=== PATIENT | male | born 2005 ===

== ENCOUNTER 2024-06-09 13:28 | Inpatient (IN) | payer OTHER, SELFPAY ==
[2024-06-09 13:41] VITALS: BP 140/90; PULSE 74; O2SAT 98
[2024-06-09 13:56] VITALS: BP 125/63; PULSE 75; RESP 17; TEMP 36.9; O2SAT 98; BMI 20.7
--- NOTE | 2024-06-09 14:43 | ED.PSYCH ---
HPI - Psych General Chief Complaint: Psychiatric Symptoms Stated Complaint: CRISIS EVAL PER EMS Time Seen by Provider: 06/09/24 13:32 Source: patient and EMS Mode of arrival: EMS Limitations: no limitations History of Present Illness ED Provider: JOSY HPI Narrative: 19 yo male with reported mood and personality disorder who reports increased depression and SI with plan to jump from a really high building so he can look up and watch the gee when he falls. He reports no medications and no recent drug use. He is having social issues finding work. He has been a bed search and S12 from community. He has no medical complaints MD complaint: suicidal ideation and feels depressed Onset (ago): week(s) Duration: getting worse History of same: Yes Relieving factors: none Exacerbating factors: other Context: significant life stressor Associated psychiatric symptoms: depression and suicidal ideation Associated symptoms: denies other symptoms Treatments prior to arrival: placed on mental health hold If self harm: admits thoughts of self harm and has plan Related Data Home Medications ?Medication ?Instructions ?Recorded ?Confirmed No Known Home Meds 06/10/24 06/10/24 Allergies Allergy/AdvReac Type Severity Reaction Status Date / Time No Known Allergies Allergy Verified 06/09/24 13:59 Review of Systems Review of Systems: Constitutional : No Fever, No Chills ENT/Mouth : No Ear Pain, No Nasal Congestion, No sore throat Eyes: No Eye Pain, No Swelling, No Redness Cardiovascular : No Chest Pain, No SOB Respiratory : No Cough, No Sputum, No Dyspnea Gastrointestinal : No Nausea, No Vomiting, No Diarrhea, No Hematochezia, No Melena Genitourinary : No Dysuria, No Urinary Frequency, No Hematuria Musculoskeletal : No Myalgias Skin : No Skin Lesions, No rash Neuro : No Weakness, No Numbness, No Paresthesias, No Dizziness, No Headache Psych : positive Anxiety, positive Depression, positive SI no HI All other systems reviewed and are negative [facility] Past Medical History Attestation statement: The following information was validated with the patient. Source: old records reviewed Medical History (Updated 06/09/24 @ 15:30 by Janki Queen DO) Personality disorder Social History Social History (Updated 06/09/24 @ 14:54 by Janki Queen DO) Patient Tobacco Use Status: Never used Tobacco Substance Use Type: Marijuana Advance Directives: No Advance Directives Information Provided: No Do you have a plan to hurt others: No Plan Physical Exam Vital Signs: Vital Signs: Last Vital Signs Temp 97.9 F 06/10/24 02:10 Pulse 59 06/10/24 02:10 Resp 16 06/10/24 02:10 BP 137/67 06/10/24 02:10 Pulse Ox 99 06/10/24 02:10 O2 Del Method Room Air 06/10/24 02:10 BMI result Body Mass Index 20.7 Appearance: Alert. Oriented X3. No acute distress. Eyes: Pupils equal, round and reactive to light. ENT: Pharynx normal. Neck: Normal inspection. Neck supple. CVS: Normal heart rate and rhythm. Pulses normal. Respiratory: No respiratory distress. Breath sounds normal. Abdomen: Soft and nontender. Skin: Skin warm and dry. Normal skin color. Normal skin turgor. Extremities: No lower extremity edema. No calf ttp Neuro: Oriented X 3. No motor deficit. No sensory deficit. CN2-12 intact Course Course Course Narrative: Time: 08:37 Date: 06/10/24 Provider: Janki Queen, Patient in physician observation for psychiatric evaluation.? No acute events reported overnight. No current complaints. VS stable.? Patient is in bed search status S12 Reevaluation(s) Reevaluation #1: Time: 13:28 Date: 06/10/24 Provider: Janki Queen DO Physician observation ended at 128pm. Patient to be admitted as inpatient to psychiatry. Medical Decision Making Medical Decision Making [facility] Narrative: 19 yo male with mood disorder and reported personality disorder who states he has SI with a very specific plan. He denies withdrawal concerns or medical issues. At this time labs ordered, S12 in place. Planned admit Differential Diagnosis Differential Diagnoses: The differential diagnosis associated with the presentation includes SI, depression Admission/Observation Consideration of admission/observation: Escalation of care including admission/observation considered physician observation started at 315pm pending placement for inpatient psychiatric placement Consult Healthcare Provider Management of the patient was discussed with: Behavioral Health Provider (S12 - inpatient bed search) Lab Data [facility] Lab Attestation statement: I reviewed the patient's lab results. 06/09/24 15:59 06/09/24 15:59 Labs: Lab Results 06/09/24 06/09/24 Range/Units 15:43 15:59 WBC 6.2 (4.8-10.8) X10*3/uL RBC 4.85 (4.60-5.80) X10*6/uL Hgb 14.7 (14.0-18.0) g/dl Hct 42.4 (42.0-52.0) % MCV 87.4 (80.0-98.0) fL MCH 30.3 (27.0-33.0) pg MCHC 34.7 (31.0-36.0) g/dl RDW 13.4 (11.0-16.0) % Plt Count 246 (160-400) X10*3/uL MPV 10.3 (9.4-12.4) fL Immature Gran % (Auto) 0.3 (0.0-0.4) % Neut % (Auto) 66.9 (45-73) % Lymph % (Auto) 26.1 (20-40) % Mason % (Auto) 5.7 (2-11) % Eos % (Auto) 0.2 (0-4) % Baso % (Auto) 0.8 (0-2) % Lymph # (Auto) 1.6 (1.2-4.9) X10*3/uL Mason # (Auto) 0.4 (0.1-1.2) X10*3/uL Eos # (Auto) 0.0 (0.0-0.4) X10*3/uL Baso # (Auto) 0.1 (0.0-0.2) X10*3/uL Abs Immat Gran (auto) 0.02 (0.00-0.03) X10*3/uL Absolute Neuts (auto) 4.1 (2.0-8.3) x10*3/uL Absolute Nucleated RBC 0.000 (0.0-0.012) X10*3/uL Nucleated RBC % (auto) 0.0 (0.0-0.2) /100WBC Sodium 142 (135-145) mmol/L Potassium 4.0 (3.3-5.1) mmol/L Chloride 109 H (96-108) mmol/L Carbon Dioxide 25 (22-29) mmol/L Anion Gap 12 (12-20) BUN 9 (9-16) mg/dL Creatinine 0.86 (0.5-1.4) mg/dL Estim Creat Clear Calc 122.0 Estimated GFR > 60 Random Glucose 94 (60-115) mg/dL Calcium 9.4 (8.4-10.2) mg/dL Magnesium 2.2 (1.6-2.6) mg/dL Total Bilirubin 2.2 H (0.0-1.0) mg/dL Direct Bilirubin 0.4 (0.0-0.5) mg/dL AST 21 (5-37) U/L ALT 17 (0-40) U/L Alkaline Phosphatase 58 (39-117) U/L Total Protein 7.2 (6.5-8.0) g/dL Albumin 4.6 (3.5-5.0) g/dL Urine Color Dark Yellow Urine Appearance Turbid Urine pH 5.5 (5.0-9.0) Ur Specific [place] >= 1.030 H (1.005-1.025) Urine Protein 30 (1+) H (Neg-Trace) mg/dL Urine Glucose (UA) Negative (Negative) mg/dL Urine Ketones Trace (Negative) mg/dL Urine Blood Negative (Negative) Urine Nitrite Negative (Negative) Ur Leukocyte Esterase Small (1+) H (Negative) Urine RBC 0-2 (0-2) /HPF Urine WBC 11-20 H (0-5) /HPF Ur Squamous Epith Cells 0-2 (0-2) /HPF Urine Bacteria None Seen (None Seen) Hyaline Casts 3-5 (0-2) /LPF Urine Opiates Screen Not Detected (Not Detect) Ur Buprenorphine Scrn Not Detected (Not Detect) ng/mL Ur Oxycodone Screen Not Detected (Not Detect) ng/mL Urine Methadone Screen Not Detected (Not Detect) ng/mL Urine Fentanyl Screen Not Detected (Not Detect) Ur Barbiturates Screen Not Detected (Not Detect) Ur Phencyclidine Scrn Not Detected (Not Detect) Ur Amphetamines Screen Not Detected (Not Detect) U Benzodiazepines Scrn Not Detected (Not Detect) Urine Cocaine Screen Not Detected (Not Detect) U Marijuana (THC) Screen POSITIVE H (Not Detect) Ethyl Alcohol < 10 mg/dL Independent Historian Clinical information obtained from an independent historian. History obtained from or confirmed by: EMS Discharge Plan Discharge Clinical Impression: Suicidal ideation Patient Disposition: Admitted As In[facility] Last Done: 06/09/24 14:44
--- NOTE | 2024-06-09 15:11 | PC.NURSE ---
Patient moved from [facility] to Pod 2, escorted by security.
[2024-06-09 16:03] LABS: Amphetamine Screen Urine Not Detected (Not Detect); Barbiturates, Urine Not Detected (Not Detect); Benzodiazepines Screen Urine Not Detected (Not Detect); Buprenorphine Scr Not Detected (Not Detect); Cannabinoid Screen Urine POSITIVE (Not Detect); Cocaine Screen Urine Not Detected (Not Detect); Fentanyl, urine Not Detected (Not Detect); Methadone Screen, Urine Not Detected (Not Detect); Opiate Screen Urine Not Detected (Not Detect); Oxycodone Screen Urine Not Detected (Not Detect); Phencyclidine Screen Urine Not Detected (Not Detect)
[2024-06-09 16:07] LABS: MANUAL DIFF FLAG NO
[2024-06-09 16:09] LABS: Basophils Absolute Auto 0.1 X10*3/uL (0.0-0.2); Basophils Percent Auto 0.8 % (0-2); Eosinophils Percent Auto 0.2 % (0-4); Hematocrit 42.4 % (42.0-52.0); Hemoglobin 14.7 g/dl (14.0-18.0); Imm Gran Abs Auto 0.02 X10*3/uL (0.00-0.03); Imm Gran Pct Auto 0.3 % (0.0-0.4); Lymphocytes Absolute Auto 1.6 X10*3/uL (1.2-4.9); Lymphocytes Percent Auto 26.1 % (20-40); Mean Corpuscular HGB Conc 34.7 g/dl (31.0-36.0); Mean Corpuscular Hemoglobin 30.3 pg (27.0-33.0); Mean Corpuscular Volume 87.4 fL (80.0-98.0); Mean Platelet Volume 10.3 fL (9.4-12.4); Monocytes Absolute Auto 0.4 X10*3/uL (0.1-1.2); Monocytes Percent Auto 5.7 % (2-11); Neutrophils Absolute Auto 4.1 x10*3/uL (2.0-8.3); Neutrophils Percent Auto 66.9 % (45-73); Platelet Count 246 X10*3/uL (160-400); Red Blood Count 4.85 X10*6/uL (4.60-5.80); Red Cell Distribution Width 13.4 % (11.0-16.0); White Blood Count 6.2 X10*3/uL (4.8-10.8)
[2024-06-09 16:47] LABS: Alanine Aminotransferase 17 U/L (0-40); Albumin Level 4.6 g/dL (3.5-5.0); Anion Gap 12 (12-20); Aspartate Amino Transferase 21 U/L (5-37); Bilirubin Direct 0.4 mg/dL (0.0-0.5); Bilirubin Total 2.2 mg/dL (0.0-1.0); Blood Urea Nitrogen 9 mg/dL (9-16); Calcium 9.4 mg/dL (8.4-10.2); Carbon Dioxide 25 mmol/L (22-29); Chloride 109 mmol/L (96-108); Estimated Glomerular Filt Rate > 60; Ethanol < 10 mg/dL; Glucose Random 94 mg/dL (60-115); Magnesium 2.2 mg/dL (1.6-2.6); Sodium 142 mmol/L (135-145); Total Protein 7.2 g/dL (6.5-8.0)
[2024-06-09 17:02] LABS: Alkaline Phosphatase 58 U/L (39-117)
--- OUTSIDE RECORDS SUMMARY | 2024-06-09 17:14 | XMS_ITS | Clinical Summary ---
Author Organization [facility] Address [address] [place] [id number] Phone Care Team Providers Care Assembler Seat Name Role Phone Otf Pereira MD Primary Care Provider [phone] Allergies No known active allergies Medications albuterol HFA 108 (90 Base) MCG/ACT inhaler Albuterol HFA; 0; 11/18/2012; Active 3 Active polyethylene glycol (MIRALAX) powderIndications :Slow transit constipation Take 17 g by mouth daily. Stir and dissolve powder into 4 to 8 ounces of beverage and then drink. 500 g 1 8 Active Active Problems Problem Noted Date Diagnosed Date Slow transit constipation 12/01/2017 Assessment & Plan (12/01/2017 12:58 PM EDT): Discussed use of exlax again with use of miralax regularly after that for at least two months. Dysthymia 07/16/2017 Overview (11/30/2017): Depression (311) Onset: 07/16/2017 Added by: Stefanie Cristobal Assessment & Plan (03/27/2018 7:02 AM EST): Doing much better since starting Prozac. On 10 mg and feels that this dose is appropriate at this time. Attention deficit disorder with hyperactivity Overview (11/30/2017): ADHD (314.01) Onset: 02/14/2016 Added by: Linette Romero Extrinsic asthma 02/14/2016 Overview (11/30/2017): Asthma (493.00) Onset: 02/14/2016 Added by: Linette Romero Immunizations Immunization Administration Dates Next Due DTaP 5 10/16/2008, 5,2003,05/28,2003 H1N1 Inj 06/15/2009 HPV Vaccine 9 Valent 09/28/2014 HPV, Quadrivalent 05/27/2014,02/04/2014 Hep A, ped/adol 02/17/2019,01/02/2018 Hep B, ped/adol 05/02/2004,2003,2003 Hib (PRP-T) 08/03/2004, 4,2003,04/01 IPV 10/16/2008, 5,2003,04/01 Influenza, injectable, quadr ivalent, preservative free 02/17/2019,01/02/2018,02/14/2016,02/10,02/03/2013 Influenza, injectable, trivalent 02/04/2014,01/04,12/02/2009 Influenza, injectable, triva lent, preservative free 12/13/2011 MMR 10/16/2008,02/01/2004 Meningococcal Conj (Menactra) MCV4P 02/17/2019,1 04/07/2013 Pneumococcal Polysaccharide 05/02/2004,0 2003,2003,04/01 Tdap 02/04/2014 Varicella 10/16/2008,05/02/2004 Family History Medical History Relation Name Comments No Known Problems Father No Known Problems Mother gosia Relation Name Status Comments Father Alive Mother gosia Alive Social History Tobacco Use Types Packs/Day Years Used Date Smoking Tobacco: Never Smokeless Tobacco: Never Alcohol Use Standard Drinks/Week Comments No 0 (1 standard drink = 0.6 oz pur e alcohol) Hunger/Food Answer Date Recorded In the last 12 months, did y ou or your family ever eat less than you felt you should because there wasn't enough money for food? No 02/17/2019 Stable Housing Answer Date Recorded Are you worried that in the next 2 months you may not have stable housing? No 02/17/2019 Transportation Concerns Answer Date Rec orded In the last 12 months, have you or your family ever had to go without healthcare because you didn't have a way to get there? No 02/17/2019 Hazards in Home Answer Date Recorded Think about the place you li ve. Do you have problems with any of the following? Pests (mice or roaches), mold, no/not working smoke detectors, water leaks, no window guards. No 2018 Financing Utilities Answer Date Recorde d In the last 12 months, has t he electric, gas, oil, or water company threatened to shut off your services in your home? No 02/17/2019 Safety at Home Answer Date Recorded Are you or your family worried about feeling saf e in your home? No 02/17/2019 Outside Support Answer Date Recorded Do you feel that you need mo re support from other people or programs to help you care for yourself or your family? No 02/17/2019 Understanding Health Concerns Answer Da te Recorded Do you need help understandi ng your or your child's healthcare needs (diagnosis, medications, plan, etc.)? No 02/17/2019 Financing Health Concerns Answer Date R ecorded In the last 12 months, was t here a time when your child needed to see a doctor or get medications or supplies but could not because of cost? No 02/17/2019 Missing School or Work Answer Date Cooper rded Did you or your child miss s chool or work because of a health problem that could have been avoided? No 02/17/2019 Sex and Gender Information Value Date Recorded Sex Assigned at Not on file Legal Sex Male 6:41 PM EDT Gender Identity Not on file Sexual Orientation Not on file Last Filed Vital Signs Vital Sign Reading Time Taken Comments Blood Pressure 122/78 02/17/2019 1:36 PM EST Pulse 88 02/17/2019 1:36 PM EST Temperature 37.2 ??C (99 ??F) 02/17/2019 1:36 PM EST Respiratory Rate - - Oxygen Saturation - - Inhaled Oxygen Concentration - - Weight 70.1 kg (154 lb 9 oz) 02/17/2019 1:36 PM EST Height 172.7 cm (5' 8 ) 02/17/2019 1:36 PM EST Body Mass Index 23.5 02/17/2019 1:36 PM EST Plan of Treatment Health Maintenance Due Date Last Done Comments Men B Vaccine (1 of 2 - Standard) 2019 Influenza Vaccines (#1) 2023 02/18/20 19, 01/02/2018, 02/14/2016, Additional history exists COVID-19 Vaccine ( season) 2023 DTaP,Tdap,and Td Vaccines (7 - Td or Tdap) 02/05/2024 02/04/2014, 10/16/2008, 08/03/2004, Additional history exists Hepatitis B Vaccines Completed 05/02/2004, 2003, 2003 Pneumococcal Vaccine Aged Out 05/02/2004, 2003, 2003, Additional history exists No longer eligible based on patient's age to complete this topic HIB Vaccines Completed 08/03/2004, 07/04, 2003, Additional history exists IPV Vaccines Completed 10/16/2008, 03/2004, 2003, Additional history exists MMR Vaccines Completed 10/16/2008, 02/01/2004 Varicella Vaccines Completed 10/16/2008, 05/02/2004 HPV Vaccines Completed 09/28/2014, 05/04, 02/04/2014 Hepatitis A Vaccines Completed 02/17/2019, 01/03/20 18 Meningococcal Vaccine Completed 02/17/2019, 014 Care Teams Assembler Seat Relationship Specialty Start Date End Date Otf Pereira MD [facility] [place] [address] PCP - General Pediatrics 09/23/20
--- OUTSIDE RECORDS SUMMARY | 2024-06-09 17:14 | XMS_ITS | Encounter Summary ---
Author Organization [facility] Address [address] [place] [address] Phone Care Team Providers Care Dice Person Name Role Phone Otf Pereira MD Primary Care Provider [phone] Encounter Details Date Type Department Care Team (Late st Contact Info) Description 04/21/2010 Conversion Encounter [address] [place] [address] Social History Tobacco Use Types Packs/Day Years Used Date Smoking Tobacco: Never Assessed Sex and Gender Information Value Date Recorded Sex Assigned at Not on file Legal Sex Male 6:41 PM EDT Gender Identity Not on file Sexual Orientation Not on file documented as of this encounter Plan of Treatment Not on file documented as of this encounter Visit Diagnoses Not on filedocumented in this encounter Care Teams Dice Person Relationship Specialty Start Date End Date Otf Pereira MD [address] [place] [address] [place] [address] PCP - General Pediatrics 09/23/20 documented as of this encounter
--- NOTE | 2024-06-09 19:32 | PC.NURSE ---
Patient has been resting comfortably throughout this shift. Denies pain. [facility] section 12 bedsearch.
--- NOTE | 2024-06-10 01:15 | PC.NURSE ---
Patient requested apple juice, provided and tolerated well. Patient is calm and cooperative. Currently resting in a bed, offers no complaints at present.
[2024-06-10 02:10] VITALS: BP 137/67; PULSE 59; RESP 16; TEMP 36.6; O2SAT 99
--- NOTE | 2024-06-10 06:58 | PC.NURSE ---
Assumed care of patient at 0645, patient appears to be sleeping no apparent distress noted, respirations even and unlabored. Continue plan of care for CARE team el
[2024-06-10 08:03] LABS: Appearance Urine Turbid; Color Urine Dark Yellow; Glucose Urine UA Negative (Negative); Leukocyte Esterase Urine Small (1+) (Negative); Nitrite Urine Negative (Negative); PH 5.5 (5.0-9.0); Specific Gravity - Urine >= 1.030 (1.005-1.025); UMIC TRIGGER UA YES; Urine Blood Negative (Negative); Urine Ketones Trace mg/dL (Negative); Urine Protein 30 (1+) mg/dL (Neg-Trace)
[2024-06-10 08:11] LABS: Bacteria Urine None Seen (None Seen); RBC Urine 0-2 /HPF (0-2); Squamous Epithelial Cell Urine 0-2 /HPF (0-2)
[2024-06-10 14:57] VITALS: BP 136/67; PULSE 71; RESP 15; TEMP 37.1; O2SAT 97; BMI 20.3
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
[2024-06-10 19:41] VITALS: BP 131/68; PULSE 79; TEMP 36.6; O2SAT 97
[2024-06-10] MEDS: hydrOXYzine HCL 25 MG TABLET PO (21:14)
[2024-06-10] MEDS: traZODone HCL 50 MG TABLET PO (21:14)
[2024-06-11 07:58] LABS: Estimated Average Glucose 105 mg/dL; Hemoglobin A1C 132.8605 umol/L; Hemoglobin A1c % 5.3 % (<6.0)
[2024-06-11 08:10] LABS: Cholesterol 129 mg/dL (<200); HDL Cholesterol 37 mg/dL (>40); LDL Cholesterol Calculated 77 mg/dL (<100); Magnesium 2.2 mg/dL (1.6-2.6); Triglycerides 76 mg/dL (<150)
[2024-06-11 08:25] LABS: Free T4 (Free Thyroxine) 1.05 ng/dL (0.71-1.85); Thyroid Stimulating Hormone 1.56 uIU/mL (0.32-4.0)
[2024-06-11 08:39] LABS: Folate 7.6 ng/mL (> or = 4.0); Vitamin B12 354 pg/mL (200-900)
[2024-06-11 08:55] VITALS: BP 95/55; PULSE 66; TEMP 36.3; O2SAT 100
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
[2024-06-11 19:26] VITALS: BP 119/59; PULSE 76; TEMP 37.2; O2SAT 98
[2024-06-11] MEDS: traZODone HCL 50 MG TABLET PO (21:28)
[2024-06-11] MEDS: hydrOXYzine HCL 25 MG TABLET PO (21:28)
[2024-06-12 07:00] VITALS: BMI 20.6
[2024-06-12 07:51] VITALS: BP 97/43; PULSE 56; TEMP 36.4; O2SAT 98
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
[2024-06-12] MEDS: risperiDONE 0.5 MG TABLET PO ×2 (12:55→20:40)
[2024-06-12] MEDS: hydrOXYzine HCL 25 MG TABLET PO (20:40)
[2024-06-12] MEDS: traZODone HCL 50 MG TABLET PO (20:40)
[2024-06-13 08:00] VITALS: BP 130/60; PULSE 80; RESP 16; TEMP 36.5; O2SAT 99
[2024-06-13] MEDS: risperiDONE 0.5 MG TABLET PO ×2 (08:48→21:16)
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
[2024-06-13] MEDS: hydrOXYzine HCL 25 MG TABLET PO (17:35)
[2024-06-13 20:00] VITALS: BP 128/88; PULSE 88; TEMP 37.1; O2SAT 98
[2024-06-13] MEDS: traZODone HCL 50 MG TABLET PO (21:16)
[2024-06-14 08:00] VITALS: BP 125/68; PULSE 71; RESP 16; TEMP 36.7; O2SAT 100
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
[2024-06-14] MEDS: risperiDONE 0.5 MG TABLET PO ×2 (08:52→22:29)
[2024-06-14 19:53] VITALS: BP 120/59; PULSE 97; RESP 16; TEMP 36.8; O2SAT 97
[2024-06-14] MEDS: traZODone HCL 50 MG TABLET PO (22:29)
--- NOTE | 2024-06-15 | ECG_ITS ---
Test Reason : check qtc co racing heart from medicine Blood Pressure : */* mmHG Vent. Rate : 84 BPM Atrial Rate : 84 BPM P-R Int : 138 ms QRS Dur : 76 ms QT Int : 340 ms P-R-T Axes : 84 69 49 degrees QTcB Int : 401 ms Sinus rhythm with marked sinus arrhythmia Otherwise normal ECG No previous ECGs available Referred By: Glendy Panda Electronically Signed By: ANKITA SAHNI MD
[2024-06-15 08:00] VITALS: BP 122/58; PULSE 84; RESP 16; TEMP 36.7; O2SAT 100
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
[2024-06-15] MEDS: risperiDONE 0.5 MG TABLET PO ×2 (08:59→20:42)
[2024-06-15 20:00] VITALS: BP 140/70; PULSE 98; RESP 16; TEMP 36.8; O2SAT 97
[2024-06-15] MEDS: traZODone HCL 50 MG TABLET PO (20:42)
[2024-06-16 08:00] VITALS: BP 144/67; PULSE 87; RESP 18; TEMP 36.6; O2SAT 98
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
== END 2024-06-16 11:32 | disposition home or self-care (01) | DRG 755 ==
LOC: HO.ED 19:40 → HO.PM5 06-10 13:25
PROVIDERS: Admitting Provider Clinical Nurse Specialist Psychiatric/Mental Health, Adult; Emergency Provider Emergency Medicine; Visit Provider Clinical Nurse Specialist Psychiatric/Mental Health, Adult
DX: F43.11 Post-traumatic stress disorder, acute (principal); R45.851 Suicidal ideations; F43.12 Post-traumatic stress disorder, chronic; F60.9 Personality disorder, unspecified; F90.9 Attention-deficit hyperactivity disorder, unspecified type; Z59.01 Sheltered homelessness; Z62.810 Personal history of physical and sexual abuse in childhood; Z79.899 Other long term (current) drug therapy
CPT/HCPCS: 36415; 80048; 80061; 80076; 80307; 81001; 81003; 82607; 82746; 83036; 83735; 84439; 84443; 85025; 93005; 99284

== ENCOUNTER 2024-06-10 13:20 | Outpatient (BNV) | payer OTHER, SELFPAY | END 2024-06-15 11:37 | PROVIDERS: Admitting Provider Clinical Nurse Specialist Psychiatric/Mental Health, Adult; Emergency Provider Emergency Medicine; Visit Provider Internal Medicine Cardiovascular Disease | DX: Z13.6 Encounter for screening for cardiovascular disorders (principal) | CPT/HCPCS: 93010 ==

== ENCOUNTER → 2024-06-10 13:20 | Outpatient (BNV) | payer OTHER, SELFPAY | PROVIDERS: Admitting Provider Clinical Nurse Specialist Psychiatric/Mental Health, Adult; Emergency Provider Emergency Medicine; Visit Provider Psychiatry & Neurology Psychiatry | DX: F60.9 Personality disorder, unspecified (principal); F43.11 Post-traumatic stress disorder, acute; F90.9 Attention-deficit hyperactivity disorder, unspecified type; Z59.00 Homelessness unspecified | CPT/HCPCS: 90792; 99231; 99232 ==

== ENCOUNTER 2025-02-21 02:12 | Emergency (ER) | payer SELFPAY ==
[2025-02-21 02:15] VITALS: BP 110/80; BP 111/52; PULSE 85; PULSE 99; RESP 18; TEMP 36.9; O2SAT 97; O2SAT 99; BMI 23.4
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
--- OUTSIDE RECORDS SUMMARY | 2025-02-21 02:49 | XMS_ITS | Encounter Summary ---
Author Organization [facility] Address [address] [place] [id number] Phone Care Team Providers Care Clinic Manager Name Role Phone Otf Pereira MD Primary Care Provider [phone] Encounter Details Date Type Department Care Team (Late st Contact Info) Description 04/21/2010 Conversion Encounter [address] [place] [address] Social History Tobacco Use Types Packs/Day Years [...] on filedocumented in this encounter Care Teams Clinic Manager Relationship Specialty Start Date End Date Otf Pereira MD [address] [place] [address] [place] [address] PCP - General Pediatrics 09/23/20 documented as of this encounter
--- OUTSIDE RECORDS SUMMARY | 2025-02-21 02:49 | XMS_ITS | Clinical Summary ---
Author Organization [facility] Address [address] [place] [id number] Phone Care Team Providers Care Police Captain Name Role Phone Otf Pereira MD Primary Care Provider [phone] Allergies No known active allergies Medications albuterol [...] 88 02/17/2019 1:36 PM EST Temperature 37.2 C (99 F) 02/17/2019 1:36 PM EST Respiratory Rate - [...] Vaccine (1 of 2 - Standard) 2019 DTaP,Tdap,and Td Vaccines (7 - Td or Tdap) 02/05/2024 02/04/2014, 10/16/2008, 08/03/2004, Additional history exists Influenza Vaccines (#1) 2024 02/18/20 19, 01/02/2018, 02/14/2016, Additional history exists COVID-19 Vaccine ( season) 2024 Hepatitis B Vaccines Completed 05/02/2004, 2003, 2003 [...] Meningococcal Vaccine Completed 02/17/2019, 014 Care Teams Police Captain Relationship Specialty Start Date End Date Otf Pereira MD [address] [place] [address] [place] [address] PCP - General Pediatrics 09/23/20
[2025-02-21 04:48] VITALS: BP 103/49; PULSE 59; RESP 16; TEMP 36.6; O2SAT 98
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
[2025-02-21 06:23] VITALS: BP 102/47; PULSE 60; RESP 16; O2SAT 98
[2025-02-21] MEDS: Diphth,Pertus(ACell),Tet Adult 0.5 ML SYRINGE IM (06:27)
[2025-02-21 06:33] VITALS: BP 102/47; PULSE 60; RESP 16; TEMP -17.7; TEMP 0; O2SAT 98
== END 2025-02-21 06:33 | disposition home or self-care (01) ==
PROVIDERS: Emergency Provider Emergency Medicine
DX: S00.12XA Contusion of left eyelid and periocular area, initial encounter (principal); S00.81XA Abrasion of other part of head, initial encounter; W22.8XXA Striking against or struck by other objects, initial encounter; Y93.9 Activity, unspecified; Y92.9 Unspecified place or not applicable; Z23 Encounter for immunization
CPT/HCPCS: 90471; 90715; 99284